=== PATIENT | male | born 1985 | race Asian ===

== ENCOUNTER 2021-08-04 13:05 | Outpatient (CLI) | payer OTHER ==
--- NOTE | 2021-08-04 15:27 | MRI Report ---
PROCEDURE: Brain W/O INDICATIONS: HEADACHE TECHNIQUE: Noncontrast axial T1 spin echo, axial T2 fast spin echo, sagittal and axial FLAIR, coronal T2 fast sp in echo, axial gradient echo, axial diffusion and ADC through the brain. COMPARISON: None. FINDINGS: Image quality: Excellent. CSF Spaces: Basal cisterns are patent. No extra-axial fluid collections. Ventricles are normal in size and shape. Brain: No intracranial masses or hemorrhage. Srinivasan/white matter interface is normal. Brainstem appe ars normal. Diffusion-weighted images demonstrate no acute ischemic insult. No chronic ischemic ins ults. Normal intravascular flow voids are present. Skull and face: Calvarium has normal marrow signal. Orbits appear normal. Sinuses: Sinuses and mastoids are clear. IMPRESSION: No acute process. No recent infarct. Reviewed by: Latia Valladares MD on 08/04/2021 3:26 PM PDT Approved by: Latia Valladares MD on 08/04/2021 3:26 PM PDT Station ID: [id number]
== END 2021-08-04 13:06 | disposition home or self-care (01) ==
LOC: DI 13:05
PROVIDERS: ATTEND Nurse Practitioner Family
DX: R51.9 Headache, unspecified (principal)